=== PATIENT | female | born 1980 | race Caucasian/White ===

== ENCOUNTER 2018-04-28 18:09 | Outpatient (REF) | payer BC, SELFPAY ==
[2018-04-28 19:21] LABS: TSH (W/Ref FT4) 1.93 uIU/mL (0.358-3.74)
[2018-05-01 10:23] LABS: Prolactin 10.7 ng/ml
== END 2018-04-28 18:29 ==
LOC: NCHCN 18:09
PROVIDERS: PCP Family Medicine; Visit Provider Family Medicine
DX: N64.3 Galactorrhea not associated with childbirth (principal)
CPT/HCPCS: 84146; 84443

== ENCOUNTER 2020-05-08 13:49 | Outpatient (REF) | payer BC, SELFPAY ==
[2020-05-12 02:31] LABS: Patient Race White; SARS-CoV-2 RNA Undetected (Undetected); SARS-CoV-2 Specimen Source Nasal
== END 2020-05-08 14:09 ==
LOC: NCHCN 13:49
PROVIDERS: PCP Family Medicine; Visit Provider Nurse Practitioner Family
DX: Z20.828 Contact with and (suspected) exposure to other viral communicable diseases (principal)
CPT/HCPCS: U0003

== ENCOUNTER 2020-05-26 15:54 | Outpatient (REF) | payer BC, SELFPAY ==
--- NOTE | 2020-05-26 12:00 | PAPFT_PTH ---
PATIENT: Sendy Oliva LOC: [facility] U#:[id number] AGE/SX: 39/F ROOM: RE05/26/[address]: Sreekanth Landis : 1980 BED: DIS: 05/26/2020 SPEC #: [id number] RECD: 05/27/20 12:45 STATUS: YEN REQ #: [id number] HADLEY: 05/26/20 12:[address]: Sreekanth Landis DEPT: [facility] Cytology RECD BY: Jamee Verma Tissues: 1 - CX/ENDOCX FOR PAP SMEARS Procedures: PAP THIN PREP/UVM Screening HPV DNA PROBE Comments: [id number] (CVPH#)
== END 2020-05-26 16:14 ==
LOC: NCHCN 15:54
PROVIDERS: PCP Family Medicine; Visit Provider Family Medicine
DX: Z12.4 Encounter for screening for malignant neoplasm of cervix (principal); Z00.00 Encounter for general adult medical examination without abnormal findings; Z11.51 Encounter for screening for human papillomavirus (HPV)
CPT/HCPCS: 88142; 87624

== ENCOUNTER 2020-07-17 14:01 | Emergency (ER) | payer BC, SELFPAY ==
[2020-07-17] VITALS (23 sets, daily range): BP systolic 113–143; BP diastolic 66–90; PULSE 98–130; RESP 18; TEMP 36.8; O2SAT 98–100
--- NOTE | 2020-07-17 14:03 | ED.GENADUL_ITS ---
Discharge Plan Disposition Patient Disposition: HOME Condition: Improving Discharge Details Clinical Impression: Urinary tract infection Primary Care Provider: Sreekanth Landis ED Provider: Susana Carr Home Meds and New Rx's Prescriptions: New levofloxacin 750 mg tablet 750 mg PO DAILY Qty: 7 RF: 0 No Action ondansetron HCl [Zofran] 4 MG tablet 4 mg PO PRN PRNRF: 0 Discharge Instructions Instructions: Urinary Tract Infection in Women (ED) Additional Instructions: increase fluids drinking at least 6-8 glasses of water daily. take antibiotics as prescribed even if you feel better. return sooner for new or worsening symptoms you can use pyridium 100 mg every 8 hours if needed for symptoms of frequency, urgency or dysuria. you have been given 2 tabs for home use, it will turn your urine bright yellow/orange Referrals: Sreekanth Landis [Primary Care Provider] - Discharge Data Discharge Date/Time-TO BE ENTERED AT DEPARTURE: 07/17/20 18:55 Medical Decision Making <BHAVNA Ty - Last Filed: 07/18/20 16:53> 39-year-old female sent from the walk-in clinic for concern of pyelonephritis versus renal stone. She had dysuria for the past couple of days but has now returned back to suprapubic, left flank, left lower back pain, nausea, vomiting. She presents anxious, tachycardic. Will obtain IV access, give IV fluids, Zofran, Toradol, obtain CBC, CMP, lipase, CT imaging with contrast. Laboratory values reveal a white blood cell count of 15.65, urinalysis large blood, large leuk esterase, greater than 50 white blood cells. Given her elevated white count, tachycardia, obvious source of infection in her urine, will obtain blood cultures and give IV Levaquin for concern for pyelonephritis. CT abdomen and pelvis read by radiology as mild dilatation of the collecting system. No obvious stone. No obstruction or hydronephrosis. Clinically patient has pyelonephritis. She reports that her nausea and vomiting is improving and she would like to go home if at all possible. She has been h ere less than 2 hours. I would like her to continue her IV fluid, observe longer, and trial p.o. intake. Patient understands that if she does not well she will likely need admission. Care signed to Susana Carr [employer] at 1600 Medical Records Medical records reviewed: Yes I reviewed the patient's medical records. Lab Data Lab results reviewed: Yes I reviewed the patient's lab results. Lab results narrative: 07/17/20 15:11 Blood Blood Culture - Pending 07/17/20 15:11 Blood Blood Culture - Pending 07/17/20 14:11 Urine - Reflex from Ua Urine Culture - Pending Laboratory Tests Range/Units 07/17/20 07/17/20 07/17/20 14:11 15:00 15:00 WBC (4.4-10.8) 10^3/uL 15.65 H RBC (3.93-5.22) 10^6/uL 4.57 Hgb (11.2-15.7) g/dL 13.0 Hct (36.0-46.0) % 39.5 MCV (80-95) fL 86.4 MCH (27.0-33.0) pg 28.4 MCHC (32.0-36.0) % 32.9 RDW (11.7-14.6) % 13.2 Plt Count (130-400) 10^3/uL 318 MPV (8.0-11.0) fL 10.7 Immature Gran % 0.5 Neutrophils % 84.2 Lymphocytes % 9.3 Monocytes % 5.9 Eosinophils % 0.0 Basophils % 0.1 Nucleated RBC % % 0 Absolute Neutrophils (1.2-6.7) 10^3/uL 13.18 H Absolute Lymphocytes (1.2-3.4) 10^3/uL 1.46 Absolute Monocytes (0.1-0.8) 10^3/uL 0.92 H Absolute Eosinophils (0.0-0.7) 10^3/uL 0.00 Absolute Basophils (0.0-0.2) 10^3/uL 0.02 Sodium (136-145) mmol/L 137 Potassium (3.5-5.1) mmol/L 3.5 Chloride (98-107) mmol/L 102 Carbon Dioxide (21.0-32.0) mmol/L 24.5 Anion Gap (3-11) mmol/L 10.5 BUN (7-18) mg/dL 7 Creatinine (0.55-1.02) mg/dL 0.72 Estimated GFR/1.73 m2 (mL/min/1.73m2) >= 60.00 Glucose (74-106) mg/dL 98 Calcium (8.5-10.1) mg/dL 9.0 Total Bilirubin (0.2-1.0) mg/dL 0.6 AST (15-37) U/L 16 ALT (14-59) U/L 37 Alkaline Phosphatase (46-116) U/L 81 Total Protein (6.4-8.2) g/dL 8.6 H Albumin (3.4-5.0) g/dL 4.1 Urine Color (Yellow) Yellow Urine Clarity (Clear) Sl cloudy Urine pH (5-8) 6.0 Ur Specific [place] (1.005-1.025) 1.010 Urine Protein (Negative) mg/dL 100 H Urine Ketones (Negative) mg/dL Negative Urine Blood (Negative) Large H Urine Nitrite (Negative) Negative Urine Bilirubin (Negative) Negative Urine Urobilinogen (Up TO 0.2) EU/dL 0.2 Ur Leukocyte Esterase (Negative) Large H Urine RBC Not Applicable Urine WBC (0-5) HPF >50 H Ur Epithelial Cells Not Applicable Urine Crystals Not Applicable Urine Bacteria Not Applicable Urine Mucus Not Applicable Ur Culture Indicated? Yes Urine Glucose (Negative) mg/dL Negative <Susana Carr NP - Last Filed: 07/17/20 20:09> report and care of patient received. chart reviewed. vitals improved after receiving IV fluids. plan to PO challenge and discharge home. received 2 liters of saline with improvement in her symptoms. she is tolerating PO well. will dispense one levaquin 750 mg for home use tomorrow as pharmacies closed d/t holiday, will dispense pyridium 100 mg tab x2 if needed for symptoms Medical Records Medical records reviewed: Yes I reviewed the patient's medical records. Lab Data Lab results reviewed: Yes I reviewed the patient's lab results. HPI <BHAVNA Ty - Last Filed: 07/18/20 16:53> General Mode of arrival: ambulatory . Date/Time Provider Initiated Documentation: 07/17/20 14:03 . Limitations to Documentation: no limitations . Information obtained by: patient . HPI Narrative: This is a 39-year-old female, denies significant past medical history. She was sent here from urgent care for further evaluation. She developed dysuria and frequency on Tuesday, that has developed into a lower abdominal-suprapubic discomfort, left lower quadrant pain that wraps around her flank into her back. She reports moderate-severe knee. It is associate with nausea and vomiting. She denies fever. Denies chest pain, shortness of breath, diarrhea or constipation. Reports minimal hematuria. Denies any vaginal bleeding or discharge. No STD exposure. Related Data Home Medications Medication Instructions Recorded Confirmed ondansetron HCl [Zofran] 4 mg PO PRN PRN 02/04/17 07/17/20 levofloxacin 750 mg PO DAILY #7 tab 07/17/20 Previous Rx's Medication Instructions Recorded levofloxacin 750 mg PO DAILY #7 tab 07/17/20 Allergies Allergy/AdvReac Type Severity Reaction Status Date / Time No Known Allergies Allergy Unverified 07/17/20 14:13 Review of Systems <BHAVNA Ty - Last Filed: 07/18/20 16:53> Constitutional Constitutional: Denies fever(s) Cardiovascular Cardiovascular: Denies chest pain and Denies dyspnea Respiratory Respiratory: Denies cough and Denies dyspnea Gastrointestinal Gastrointestinal: Reports abdominal pain, Denies constipation, Denies diarrhea, Reports nausea and Reports vomiting Genitourinary Genitourinary: Denies abnormal vaginal bleeding, Reports hematuria, Reports dysuria and Denies vaginal discharge Musculoskeletal Musculoskeletal: Reports back pain Integumentary/Breasts Skin/Breast: Denies rash PFSH <BHAVNA Ty - Last Filed: 07/18/20 16:53> Medical History Migraine with aura Uterine fibroid Surgical History Colonoscopy - MAC (02/14/17) EGD - MAC (02/14/17) Social History Smoking/Tobacco Use Status: Never Smoking risk assessment performed?: Yes Alcohol Intake: current Alcohol Intake frequency: a few times a month Drug use: Never Do you feel safe at home: Yes Do you feel safe in your relationship?: Yes Exam <BHAVNA Ty - Last Filed: 07/18/20 16:53> Const General: cooperative, healthy appearing and acute distress (Tearful, uncom fortable) Orientation: alert, awake and oriented x3 HENMT Head: normal to inspection, normocephalic and atraumatic Eyes General: appearance normal, both eyes and all related structures Conjunctivae: conjunctivae normal Sclera: sclerae normal Neck Neck: normal visual inspection, full ROM, no meningeal signs, trachea midline and supple Resp Effort & Inspection: normal respiratory effort and able to speak in complete sentences Auscultation: clear to auscultation bilaterally Cardio Rate: tachycardic (120's) Rhythm: regular rhythm GI Inspection: normal to inspection Palpation: soft, not firm, no guarding, no pulsatile masses and tender in the LUQ, suprapubicly and other (Left flank); with no rebound tenderness Auscultation: normal bowel sounds Back/Spine/Pelvis Back: no CVA tenderness and back tenderness (Diffuse mild left lower lumbar) Skin General skin exam: no rashes or lesions noted Neuro General: patient alert, patient awake, patient oriented x3, moves all extremities and no focal motor deficits Cognition: normal cognition Speech: speech normal Gait: normal gait Sensory Exam: no sensory deficits noted Psych Appearance: grossly normal Mental Status: mental status grossly normal Sign Out <BHAVNA Ty - Last Filed: 07/18/20 16:53> Sign Out Data: Sign Out Comment: Diagnosis of pyelonephritis. Patient would prefer to go home if at all possible. She does state that she is feeling improvement of her overall symptoms. Awaiting administration of IV fluid, reevaluation and final disposition. Blood cultures obtained. Given 750 IV Levaquin. Last updated by Maurisio Lemons PA at 07/17/20 16:05
[2020-07-17 14:19] LABS: Bilirubin Negative (Negative); Blood Large (Negative); Clarity Sl Cloudy (Clear); Glucose Negative (Negative); Ketones Negative (Negative); Leukocyte Esterase Large (Negative); Nitrite Negative (Negative); Urobilinogen 0.2 EU/dL (Up TO 0.2)
[2020-07-17 14:27] LABS: C & S Indicated? Yes; WBC >50 HPF (0-5)
[2020-07-17] MEDS: Ondansetron 4 MG/2 ML VIAL IVP (14:40)
[2020-07-17] MEDS: Ketorolac 30 MG/ML VIAL IVP (14:40)
[2020-07-17] MEDS: Normal Saline 1,000 ML 1000 ML IV ×2 (14:41→17:05)
--- NOTE | 2020-07-17 14:45 | DI.CT_ITS ---
EXAM: CT ABDOMEN PELVIS W CLINICAL HISTORY: >50 wbc urine, N/V, L abd/flank pain. TECHNIQUE: Imaging Protocol: Axial computed tomography images with coronal and sagittal reformatted images were created and reviewed CONTRAST MATERIAL: Intravenous: Omnipaque 100cc Oral: None COMPARISON: CT ABD PELVIS WITH CONTRAST from 01/29/2017 FINDINGS: VISUALIZED LUNG BASES: No nodules nor pleural effusions evident. ABDOMEN: There is no ascites. LIVER: There is an unchanged lesion in the right hepatic lobe and has the appearance of a probable ca vernous hemangioma measuring 5 x 2.5 centimetres, unchanged from 2017. No new focal hepatic lesions. GALLBLADDER/BILIARY: No obvious gallbladder pathology. CBD is not dilated. PANCREAS: No evidence of pancreatic mass nor dilatation of the pancreatic duct. SPLEEN: Spleen is not enlarged. No obvious intrasplenic lesions. Splenic and portal veins are paten t. ADRENALS: There are no significant adrenal masses. KIDNEYS:The right kidney appears unremarkable. There is mild perinephric streaking on the left side and very mild dilatation of the left ureter with some periureteral streaking. There is no radiopaque calculus evident in the left ureter nor the UVJ nor within the urinary bladder.. ABDOMINAL AORTA: Abdominal aorta is not enlarged and there is no jvotucznxdvwxmq-ouog-djozfu adenopat hy. ABDOMINAL WALL/GI: No evidence of significant anterior abdominal wall hernia. No bowel obstruction. PELVIS: GI: No evidence of appendicitis.No evidence of sigmoid diverticulitis. LYMPH NODES: There is no intrapelvic nor inguinal adenopathy. REPRODUCTIVE: Uterus size is prominent. The previously present IUD (2017) as been removed. There is a small cyst in the right ovary which measures 11 millimeters, most probably follicular. Left ovary size is upper normal. There is a small amount of fluid in the cul-de-sac URINARY BLADDER: No calculi nor obvious masses evident OSSEOUS: No significant osseous lesions. IMPRESSION: 1. There is mild dilatation of the entire left collecting system without evidence of calculi in the k idney, ureter, and urinary bladder. There is mild streaking around the left kidney and ureter. Urol ogy consultation recommended. 2. The opposite-right kidney appears unremarkable. No obvious abnormality in the urinary bladder. 3. The IUD which was present in the uterus in 2017 has been removed/no longer seen. No obvious abnor mal adnexal masses although there is a small amount of fluid in the cul-de-sac evident. 4. No significant osseous findings. RADIATION DOSE DELIVERED: 914.12mGy.cm Total DLP DATA REPOSITORY: All CT scans at this facility are submitted to the National Radiology Data Registry (NRDR) Dose Index Registry (DIR) with the [employer] (ACR). RADIATION OPTIMIZATION: All CT scans at this facility use at least one of these dose optimization te chniques: automated exposure control; mA and/or kV adjustment per patient size (includes targeted exa ms where dose is matched to clinical indication); or iterative reconstruction.
[2020-07-17 15:05] LABS: Abs Immature Grans 0.08 10^3/uL (0.0-0.06); Absolute Basophil Count 0.02 10^3/uL (0.0-0.2); Absolute Lymphocyte Count 1.46 10^3/uL (1.2-3.4); Basophils % 0.1; HCT 39.5 % (36.0-46.0); Immature Grans % 0.5; Lymphocytes % 9.3; MCH 28.4 pg (27.0-33.0); MCHC 32.9 % (32.0-36.0); MCV 86.4 fL (80-95); MPV 10.7 fL (8.0-11.0); Monocytes % 5.9; Neutrophils % 84.2; Nucleated RBC 0 %; Platelet Count 318 10^3/uL (130-400); RBC 4.57 10^6/uL (3.93-5.22); RDW 13.2 % (11.7-14.6); RDW-SD 41.1 fL; WBC 15.65 10^3/uL (4.4-10.8)
[2020-07-17 15:06] LABS: Absolute Monocyte Count 0.92 10^3/uL (0.1-0.8); Absolute Neutrophil Count 13.18 10^3/uL (1.2-6.7)
[2020-07-17 15:28] LABS: ALT 37 U/L (14-59); AST 16 U/L (15-37); Albumin 4.1 g/dL (3.4-5.0); Alkaline Phosphatase 81 U/L (46-116); Anion Gap 10.5 mmol/L (3-11); BUN 7 mg/dL (7-18); Bilirubin, Total 0.6 mg/dL (0.2-1.0); CO2 24.5 mmol/L (21.0-32.0); CREATININE 0.72 mg/dL (0.55-1.02); Chloride 102 mmol/L (98-107); Glucose 98 mg/dL (74-106); Potassium 3.5 mmol/L (3.5-5.1); Sodium 137 mmol/L (136-145); Total Protein 8.6 g/dL (6.4-8.2)
[2020-07-17] MEDS: Normal Saline - Diluent 50 ML VIAL IV (15:30)
[2020-07-17] MEDS: Omnipaque 350 MG/ML 100 ML BTL IJ (15:30)
[2020-07-17] MEDS: levoFLOXacin 750 MG/150 ML BAG 100 MG IVPB (16:05)
[2020-07-17 16:35] LABS: Lipase 83 U/L (73-393)
[2020-07-17] MEDS: Phenazopyridine 100 MG TAB, 2 TABS/BTL PO (18:30)
[2020-07-17] MEDS: levoFLOXacin 500 MG, levoFLOXacin 250 MG 750 MG PO (18:53)
== END 2020-07-17 18:55 | disposition home or self-care (01) ==
LOC: ER 16:20
PROVIDERS: Physician Assistant; Emergency Provider Nurse Practitioner Acute Care; PCP Family Medicine
DX: N39.0 Urinary tract infection, site not specified (principal); B96.20 Unspecified Escherichia coli [E. coli] as the cause of diseases classified elsewhere
CPT/HCPCS: 36410; 36415; 80053; 81025; 83690; 87040; 87077; 96361; 96365; 96375; 99285; 74177; 81003; 81015; 85025; 87086; 87186; 99284; J1885; J1956; J2405; J3490

== ENCOUNTER 2020-07-23 10:17 | Emergency (ER) | payer BC, SELFPAY ==
[2020-07-23 10:20] VITALS: BP 141/85; PULSE 104; RESP 17; TEMP 36.7; O2SAT 97
[2020-07-23 10:31] LABS: Bilirubin Negative (Negative); Blood Trace-intact (Negative); Clarity Clear (Clear); Glucose Negative (Negative); Ketones Negative (Negative); Leukocyte Esterase Negative (Negative); Nitrite Negative (Negative); Urobilinogen 0.2 EU/dL (Up TO 0.2)
--- NOTE | 2020-07-23 10:34 | ED.GENADUL_ITS ---
Discharge Plan Disposition Patient Disposition: HOME Condition: Stable Discharge Details Clinical Impression: Palpitations, Flank pain Primary Care Provider: Sreekanth Landis ED Provider: Luzmaria Tsai Home Meds and New Rx's Prescriptions: New levofloxacin 750 mg tablet 750 mg PO DAILY Qty: 3 RF: 0 Continued levofloxacin 750 mg tablet 750 mg PO DAILY Qty: 7 RF: 0 No Action ondansetron HCl [Zofran] 4 MG tablet 4 mg PO PRN PRNRF: 0 Discharge Instructions Instructions: Heart Palpitations (ED), Flank Pain (ED) Additional Instructions: Follow up with primary care provider in 3-5 days. Return to ED sooner if any worsening or concerns. Increase oral fluids. Please take Tylenol or Ibuprofen with food every 4-6 hours as needed for pain and swelling. Your TSH level today was 4.36 please have your primary care provider follow-up with this. Referrals: Sreekanth Landis [Primary Care Provider] - Medical Decision Making 39-year-old female presents to the ED with chief complaint of bilateral flank pain, fatigue, increased heart rate. She was recently diagnosed with pyelonephritis on 07/17/2020 approximately 6 days ago. She was placed on levofloxacin 750 mg daily x7 days. She has 1 more day left of antibiotics. She denies any vomiting, no dysuria, no diarrhea. She does report increased fatigue with exertion, she notes that her heart rate goes up with any exertion. She reports low-grade fever this morning of 99. She has a past medical history of migraines, uterine fibroids. Work-up ordered including CBC, CMP, urinalysis. CBC is within normal limits, no leukocytosis, CMP is also within normal limits. TSH was added on the lab due to unexplained tachycardia. TSH is 4.36 free T4 is 1.16. Discussed this with patient and instructed to follow-up with primary care provider she verbalized understanding. Urinalysis shows trace blood 3-5 RBCs no leukocytes 0-2 WBCs no nitrites. At this time the UTI seems to be treated effectively, discussed lab results with patient who verbalizes understanding. This time is safe for patient be discharged home. I will place her on 3 more days of levofloxacin for a 10-day course instructed to return to the ED for continued or worsening tachycardia and fever or any vomiting. This text was generated using [employer] system, please disregard any oddities of phrase or misspellings. Medical Records Medical records reviewed: Yes I reviewed the patient's medical records. Medical records narrative: Culture result reviewed from 07/17/2020 + for E. coli was sensitive to all antibiotics. Including Levaquin. Blood cultures negative. HPI General Mode of arrival: ambulatory . Date/Time Provider Initiated Documentation: 07/23/20 10:20 . Limitations to Documentation: no limitations . Information obtained by: patient . HPI Narrative: 39-year-old female presents to the ED with chief complaint of bilateral flank pain, fatigue, increased heart rate. She was recently diagnosed with pyelonephritis on 07/17/2020 approximately 6 days ago. She was placed on levofloxacin 750 mg daily x7 days. She has 1 more day left of antibiotics. She denies any vomiting, no dysuria, no diarrhea. She does report increased fatigue with exertion, she notes that her heart rate goes up with any exertion. She reports low-grade fever this morning of 99. She has a past medical history of migraines, uterine fibroids. Related Data Home Medications Medication Instructions Recorded Confirmed ondansetron HCl [Zofran] 4 mg PO PRN PRN 02/04/17 07/23/20 levofloxacin 750 mg PO DAILY #7 tab 07/17/20 07/23/20 levofloxacin 750 mg PO DAILY #3 tab 07/23/20 Previous Rx's Medication Instructions Recorded levofloxacin 750 mg PO DAILY #7 tab 07/17/20 levofloxacin 750 mg PO DAILY #3 tab 07/23/20 Allergies Allergy/AdvReac Type Severity Reaction Status Date / Time No Known Allergies Allergy Unverified 07/23/20 10:28 General Stated Complaint: FlankPain ROBI: 3 Review of Systems Narrative: Constitutional: Negative for weight loss, alert and oriented, well groomed, normal body habitus, appears comfortable. Increased fatigue. HEENT: Denies trauma, headaches, blurry vision, nasal discharge, sore throat, trouble swallowing. Chest: Denies chest pain, irregular rhythm, hypertension. Reports tachycardia. Respiratory: Denies Shortness of breath, cough, hemoptysis. GI: Denies abdominal pain, nausea, vomiting, diarrhea, constipation. : Denies dysuria, hematuria, reports bilateral flank pain, rectal bleeding. Neuro: Denies dizziness, blurry vision, weakness, syncope, headache or facial numbness. Hematologic: Denies easy bruising, intolerance to heat or cold, hair loss. [facility] Medical History Migraine with aura Uterine fibroid Surgical History Colonoscopy - MAC (02/14/17) EGD - MAC (02/14/17) Social History Smoking/Tobacco Use Status: Never Smoking risk assessment performed?: Yes Alcohol Intake: current Alcohol Intake frequency: a few times a month Drug use: Never Do you feel safe at home: Yes Do you feel safe in your relationship?: Yes Exam Narrative Exam Narrative: Constitutional: Alert and oriented x3. Appears stated age. Normal body habitus. Head: Normocephalic, no trauma. Eyes: Pupils PERRLA, Red reflex noted, EOM's intact. Eyelids symmetrical without lesions, discharge, or swelling. ENT: Bilateral TM's WNL, External ear normal to inspection, no mastoid TTP, swelling, or erythema, Nasal turbinates WNL, no nasal discharge. Normal dentition, Posterior pharynx WNL, no exudate. Chest: RRR, Normal S1, S2, distal pulses intact. Resp: Lungs clear to auscultation bilaterally, no wheezes, rales, or rhonchi. Abdomen: Soft, nondistended, nontender to palpation all 4 quadrants. No CVA tenderness with palpation. Musculoskeletal: Normal gait, 5/5 strength to all four extremities. Skin: No suspicious rashes or lesions. Capillary refill less than 2 sec. Neurologic: Cranial nerves II-XII intact. Alert and oriented x 3. DTR's intact. Hematologic/Lymphatic: No ecchymosis, no lymphadenopathy. Course Vital Signs Vital signs: Vital Signs Temperature 36.7 C 07/23/20 10:20 Pulse 104 H 07/23/20 10:20 Respiratory Rate 17 07/23/20 10:20 Blood Pressure 141/85 H 07/23/20 10:20 Pulse Oximetry 97 07/23/20 10:20 Temperature 36.7 C 07/23/20 10:20 Temperature Source Temporal Artery Scan 07/23/20 10:20 Pulse 104 H 07/23/20 10:20 Respiratory Rate 17 07/23/20 10:20 Respiratory Effort 07/23/20 10:27 Blood Pressure 141/85 H 07/23/20 10:20 Blood Pressure Position Sitting 07/23/20 10:20 Pulse Oximetry 97 07/23/20 10:20 Oxygen Delivery Method Room Air 07/23/20 10:20 Oxygen Flow Rate 0 07/23/20 10:20 Pain Level 2 07/23/20 10:20 Lab/Test Results Lab/Test Results: Laboratory Tests Range/Units 07/23/20 10:20 Urine Color (Yellow) Yellow Urine Clarity (Clear) Clear Urine pH (5-8) 6.0 Ur Specific [place] (1.005-1.025) 1.010 Urine Protein (Negative) mg/dL Negative Urine Ketones (Negative) mg/dL Negative Urine Blood (Negative) Trace-intact H Urine Nitrite (Negative) Negative Urine Bilirubin (Negative) Negative Urine Urobilinogen (Up TO 0.2) EU/dL 0.2 Ur Leukocyte Esterase (Negative) Negative Urine Glucose (Negative) mg/dL Negative POC- Test(urine) Negative
[2020-07-23 10:38] LABS: Bacteria Negative HPF (Negative); C & S Indicated? No; Casts Negative LPF (Negative); Crystals Negative HPF (Negative); Epithelial Cells Moderate HPF (Negative); Mucus Trace (Negative); Other Cells Negative (Negative); WBC 0-2 HPF (0-5)
[2020-07-23] MEDS: Normal Saline 1,000 ML 1000 ML IV (10:55)
[2020-07-23 11:04] LABS: Abs Immature Grans 0.04 10^3/uL (0.0-0.06); Absolute Basophil Count 0.03 10^3/uL (0.0-0.2); Absolute Eosinophil Count 0.09 10^3/uL (0.0-0.7); Absolute Lymphocyte Count 1.77 10^3/uL (1.2-3.4); Absolute Monocyte Count 0.41 10^3/uL (0.1-0.8); Absolute Neutrophil Count 3.21 10^3/uL (1.2-6.7); Basophils % 0.5; Eosinophils % 1.6; HCT 36.6 % (36.0-46.0); HGB 12.1 g/dL (11.2-15.7); Immature Grans % 0.7; Lymphocytes % 31.9; MCH 28.5 pg (27.0-33.0); MCHC 33.1 % (32.0-36.0); MCV 86.1 fL (80-95); MPV 10.3 fL (8.0-11.0); Monocytes % 7.4; Neutrophils % 57.9; Nucleated RBC 0 %; Platelet Count 331 10^3/uL (130-400); RBC 4.25 10^6/uL (3.93-5.22); RDW 13.2 % (11.7-14.6); RDW-SD 41.3 fL; WBC 5.55 10^3/uL (4.4-10.8)
[2020-07-23 11:17] LABS: ALT 23 U/L (14-59); AST 12 U/L (15-37); Albumin 3.7 g/dL (3.4-5.0); Alkaline Phosphatase 72 U/L (46-116); Anion Gap 11.1 mmol/L (3-11); BUN 13 mg/dL (7-18); Bilirubin, Total 0.3 mg/dL (0.2-1.0); CO2 23.9 mmol/L (21.0-32.0); CREATININE 0.73 mg/dL (0.55-1.02); Calcium 8.9 mg/dL (8.5-10.1); Chloride 103 mmol/L (98-107); Glucose 87 mg/dL (74-106); Potassium 3.5 mmol/L (3.5-5.1); Sodium 138 mmol/L (136-145)
[2020-07-23 11:27] LABS: TSH (W/Ref FT4) 4.36 uIU/mL (0.36-3.74)
[2020-07-23 11:44] LABS: FREE T4 1.16 ng/dL (0.76-1.46)
[2020-07-23 11:49] VITALS: BP 124/78; PULSE 78; RESP 17; TEMP 36.7; O2SAT 100
== END 2020-07-23 11:58 | disposition home or self-care (01) ==
PROVIDERS: Emergency Provider Registered Nurse Emergency; PCP Family Medicine
DX: M54.5 Low back pain (principal); R00.2 Palpitations; R50.9 Fever, unspecified; R53.83 Other fatigue; N10 Acute pyelonephritis
CPT/HCPCS: 36415; 80053; 81025; 96360; 99284; 81003; 81015; 84439; 84443; 85025

== ENCOUNTER 2020-08-12 02:38 | Outpatient (CLI) | payer BC, SELFPAY ==
--- NOTE | 2020-08-12 | DI.US_ITS ---
EXAM: US RENAL CLINICAL HISTORY: RECENT PYELONEPHRITIS,LT URETERAL DILATATION ON CT,? STATUS. TECHNIQUE: Casper scale, color and spectral Doppler were used. COMPARISON: CT ABD PELVIS WITH CONTRAST from 01/29/2017 CT ABD PELVIS WITH CONTRAST from 01/29/[address] ABDOMEN PELVIS W from 07/17/[address] ABDOMEN PELVIS W from 07/17/2020 FINDINGS: Renal size in cm: Right: 10.0 left: 11.8 Echogenicity: Normal Hydronephrosis: No Cyst or mass: No Nephrolithiasis: No Other findings: None Bladder:Not optimally distended. Both ureteral jets were visualized. Prevoid vol:65 cc Postvoid vol:Not performed. IMPRESSION: No evidence of hydronephrosis. DATA REPOSITORY:
== END 2020-08-12 02:58 ==
PROVIDERS: PCP Family Medicine; Visit Provider Family Medicine
DX: N12 Tubulo-interstitial nephritis, not specified as acute or chronic (principal)
CPT/HCPCS: 76770

== ENCOUNTER 2023-02-02 12:42 | Outpatient (REF) | payer BC, SELFPAY ==
[2023-02-02 17:13] LABS: HCT 39.1 % (36.0-46.0)
[2023-02-02 17:44] LABS: Calculated LDL 128 mg/dL (<100); Cholesterol 205 mg/dL (<200); HDL Cholesterol 64 mg/dL (40-60); TSH (W/Ref FT4) 1.55 uIU/mL (0.36-3.74); Triglyceride 69 mg/dL (<150)
[2023-02-02 17:49] LABS: Hemoglobin A1C 5.7 % (<5.7)
[2023-02-04 10:04] LABS: Hepatitis C Ab w Rflx HCV PCR Negative (Negative)
== END 2023-02-02 12:43 | disposition home or self-care (01) ==
LOC: NCHCN 12:42
PROVIDERS: PCP Family Medicine; Visit Provider Family Medicine
DX: R94.6 Abnormal results of thyroid function studies (principal); Z00.00 Encounter for general adult medical examination without abnormal findings; Z13.1 Encounter for screening for diabetes mellitus; Z11.59 Encounter for screening for other viral diseases; Z13.220 Encounter for screening for lipoid disorders
CPT/HCPCS: 80061; 86803; 83036; 84443; 85014; 85018

== ENCOUNTER 2023-09-20 17:13 | Outpatient (REF) | payer BC, SELFPAY | END 2023-09-20 17:14 | disposition home or self-care (01) | LOC: NCHCN 17:13 | PROVIDERS: PCP Family Medicine; Referring Provider Family Medicine; Visit Provider Family Medicine | DX: L02.91 Cutaneous abscess, unspecified (principal) | CPT/HCPCS: 87070; 87205 ==

== ENCOUNTER → 2023-10-12 04:04 | Outpatient (CLI) | payer BC, SELFPAY ==
--- NOTE | 2023-10-12 | DI.MAMMO_ITS ---
Exam(s) MAMMO SCREENING EXAM: MAMMO SCREENING CLINICAL HISTORY: Z12.31 Encounter for screening mammogram for malignant neoplasm of breast TECHNIQUE: Mammograms were interpreted according to the usual protocol including computer analysis w ith CAD system, tomosynthesis and C-view imaging. COMPARISON: No exams were available for comparison. Baseline examination. FINDINGS: The breasts are composed of scattered fibroglandular densities, Breast Density category B. No suspicious masses or suspicious microcalcifications are seen. No skin thickening or abnormal axillary lymph nodes are seen. IMPRESSION: BI-RADS Category 1, Negative mammogram Yearly screening mammography is recommended. Breast Density - Category B, scattered fibroglandular densities. A negative radiographic report should not delay biopsy if a dominant or clinically suspicious mass is present. Up to ten percent of cancers are not identified on mammography. A negative report may reinforce clinical impression. Adenosis and dense breasts may obscure an underlying neoplasm. False positive reports average 6 to 10%. Patient will receive a letter notifying them of these results.
== END ==
PROVIDERS: PCP Family Medicine; Visit Provider Family Medicine
DX: Z12.31 Encounter for screening mammogram for malignant neoplasm of breast (principal); R92.323 Mammographic fibroglandular density, bilateral breasts
CPT/HCPCS: 77063; 77067

== ENCOUNTER 2024-06-13 16:55 | Outpatient (REF) | payer BC, SELFPAY ==
[2024-06-13 14:57] LABS: HCT 43.9 % (36.0-46.0); HGB 14.3 g/dL (11.2-15.7); MCH 28.5 pg (27.0-33.0); MCHC 32.6 % (32.0-36.0); MCV 88 fL (80-95); MPV 10.5 fL (8.0-11.0); Platelet Count 380 10^3/uL (130-400); RBC 5.02 10^6/uL (3.93-5.22); RDW 12.6 % (11.7-14.6); RDW-SD 40.9 fL
[2024-06-13 15:27] LABS: Hemoglobin A1C 5.6 % (<5.7)
[2024-06-13 18:14] LABS: ALT 35 U/L (14-59); AST 20 U/L (15-37); Albumin 4.3 g/dL (3.4-5.0); Alkaline Phosphatase 90 U/L (46-116); Anion Gap 13.3 mmol/L (3-11); BUN 10 mg/dL (7-18); Bilirubin, Total 0.53 mg/dL (0.2-1.0); CO2 21.7 mmol/L (21.0-32.0); CREATININE 0.9 mg/dL (0.55-1.02); Calcium 9.7 mg/dL (8.5-10.1); Calculated LDL 111 mg/dL (<100); Chloride 102 mmol/L (98-107); Cholesterol 190 mg/dL (<200); Estimated GFR 82.37 (mL/min/1.73m2); Glucose 85 mg/dL (74-106); HDL Cholesterol 61 mg/dL (40-60); Potassium 4.1 mmol/L (3.5-5.1); Sodium 137 mmol/L (136-145); TSH 2.49 uIU/mL (0.36-3.74); Total Protein 8.1 g/dL (6.4-8.2); Triglyceride 93 mg/dL (<150)
== END 2024-06-13 16:56 | disposition home or self-care (01) ==
LOC: NCHCN 16:55
PROVIDERS: PCP Nurse Practitioner Family; Visit Provider Nurse Practitioner Family
DX: Z00.00 Encounter for general adult medical examination without abnormal findings (principal)
CPT/HCPCS: 80053; 80061; 85027; 83036; 84443

== ENCOUNTER 2024-08-14 12:47 | Outpatient (CLI) | payer BC, SELFPAY ==
[2024-08-14 13:33] LABS: HGB 12.5 g/dL (11.2-15.7)
== END 2024-08-14 12:48 | disposition home or self-care (01) ==
LOC: LBO 12:49
PROVIDERS: PCP Nurse Practitioner Family; Referring Provider Obstetrics & Gynecology; Visit Provider Obstetrics & Gynecology
DX: N93.9 Abnormal uterine and vaginal bleeding, unspecified (principal)
CPT/HCPCS: 36415; 85014; 85018

== ENCOUNTER 2024-08-16 16:08 | Outpatient (CLI) | payer BC, SELFPAY ==
[2024-08-16 16:56] LABS: HCT 37.3 % (36.0-46.0); HGB 12.1 g/dL (11.2-15.7)
[2024-08-16 18:43] LABS: TSH (W/Ref FT4) 4.56 uIU/mL (0.36-3.74)
[2024-08-16 19:00] LABS: FREE T4 0.95 ng/dL (0.76-1.46)
== END 2024-08-16 16:09 | disposition home or self-care (01) ==
LOC: LBO 16:10
PROVIDERS: PCP Nurse Practitioner Family; Visit Provider Obstetrics & Gynecology
DX: N93.9 Abnormal uterine and vaginal bleeding, unspecified (principal)
CPT/HCPCS: 36415; 84439; 84443; 85014; 85018

== ENCOUNTER 2024-11-15 08:30 | Outpatient (RCR) | payer BC, SELFPAY ==
--- NOTE | 2024-11-20 09:18 | W.HOLTRPT ---
Date of service: 11/20/24 Time of Service: 09:18 Holter Monitor Report Referring Provider:: Maureen Sotelo Indications:: Palpitations Holter Monitor Note: This is a 48-hour Holter monitor. Rhythm throughout was sinus with an average heart rate of 87. Minimum was 56, maximum 135. There were no ventricular dysrhythmias. A total of 2 premature atrial contractions were recorded. There were no patient symptoms
== END 2024-12-15 23:59 | disposition home or self-care (01) ==
LOC: CARDOPNVT 08:30
PROVIDERS: PCP Nurse Practitioner Family; Visit Provider Internal Medicine Cardiovascular Disease
DX: I49.1 Atrial premature depolarization (principal); R00.2 Palpitations; Z51.89 Encounter for other specified aftercare
CPT/HCPCS: 93225; 93226

== ENCOUNTER 2024-11-28 02:11 | Outpatient (CLI) | payer BC, SELFPAY ==
--- NOTE | 2024-11-28 | DI.MAMMO_ITS ---
Exam(s) MAMMO SCREENING EXAM: MAMMO SCREENING CLINICAL HISTORY: LORENA,Z12.31 TECHNIQUE: Bilateral full field digital CC and MLO mammographic images were obtained with 3D tomosyn thesis and utilizing computer aided detection (CAD). COMPARISON: Available for comparison. FINDINGS: Masses/Architectural Distortion: No suspicious masses or areas of architectural distortion are presen t. Microcalcifications: No suspicious pleomorphic-type are seen. Skin Thickening/Nipple Retraction: None. IMPRESSION: 1. No significant interval change with no specific features of malignancy noted. 2. Unless there is more urgent need, screening mammography is recommended, as per [place] [employer] guidelines. BI-RADS Category 1 - Negative Breast Density - Category B - There are scattered areas of fibroglandular density. Breast density Category C or D implies that the patient has dense breast tissue. Dense breast tissue can make it harder to find cancer on a mammogram. Dense breast tissue is also associated with an incr eased risk of breast cancer. This information about the result of the mammogram report was provided to the patient to raise their awareness. Use this report when you speak with the patient about their risks for breast cancer, which includes their family history. At that time, you may recommend additional screening tests (Ultrasoun d or MRI) as these tests may add significant information. A negative radiographic report should not delay biopsy if a dominant or clinically suspicious mass is present. Up to ten percent of cancers are not identified on mammography. A negative report may reinforce clinical impression. Adenosis and dense breasts may obscure an underlying neoplasm. False positive reports average 6 to 10%. Patient will receive a letter notifying them of these results.
== END 2024-11-28 02:31 ==
LOC: DI 02:11
PROVIDERS: PCP Nurse Practitioner Family; Visit Provider Nurse Practitioner Family
DX: Z12.31 Encounter for screening mammogram for malignant neoplasm of breast (principal); R92.323 Mammographic fibroglandular density, bilateral breasts
CPT/HCPCS: 77063; 77067